=== PATIENT | male | born 1975 | race African-American/Black ===

== ENCOUNTER 2016-06-22 06:38 | Emergency (ER) | payer SELFPAY ==
[~2016-06-22] VITALS: Ht 188 cm; Wt 127.0 kg
[~2016-06-22 06:38] MED LIST: NYQUILL
[2016-06-22 07:01] VITALS: BP 122/79
== END 2016-06-22 09:01 | disposition left against medical advice (07) ==
LOC: ER 09:01
DX: R51 Headache (principal); F17.200 Nicotine dependence, unspecified, uncomplicated

== ENCOUNTER 2016-09-12 22:17 | Emergency (ER) | payer SELFPAY ==
[~2016-09-12] VITALS: Ht 188 cm; Wt 137.8 kg
[2016-09-12 22:35] VITALS: BP 148/90
== END 2016-09-13 03:00 | disposition left against medical advice (07) ==
LOC: ER 22:17
DX: Z53.21 Procedure and treatment not carried out due to patient leaving prior to being seen by health care provider (principal)

== ENCOUNTER 2018-01-19 09:31 | Emergency (ER) | payer OTHER ==
[~2018-01-19] VITALS: Ht 185.4 cm; Wt 109.0 kg
[2018-01-19 12:27] VITALS: BP 129/78
== END 2018-01-19 12:55 | disposition home or self-care (01) ==
LOC: ER 10:01
DX: R07.89 Other chest pain (principal); F17.200 Nicotine dependence, unspecified, uncomplicated; Z79.899 Other long term (current) drug therapy
CPT/HCPCS: 36415; 84484; 93005; 99285

== ENCOUNTER 2018-10-08 04:52 | Emergency (ER) | payer OTHER | END 2018-10-08 06:30 | disposition left against medical advice (07) | LOC: ER 06:25 | DX: Z53.21 Procedure and treatment not carried out due to patient leaving prior to being seen by health care provider (principal) ==